=== PATIENT | male | born 1950 | race Caucasian/White ===

== ENCOUNTER → 2017-09-11 | Outpatient (CLI) | payer MEDICARE, BC | END | disposition home or self-care (01) | LOC: PCVCCLINIC 13:30 | DX: I25.10 Atherosclerotic heart disease of native coronary artery without angina pectoris (principal); I10 Essential (primary) hypertension; E78.5 Hyperlipidemia, unspecified; D68.51 Activated protein C resistance; E11.9 Type 2 diabetes mellitus without complications; Z98.890 Other specified postprocedural states; Z79.899 Other long term (current) drug therapy; Z79.01 Long term (current) use of anticoagulants | CPT/HCPCS: 93005; G0463 ==

== ENCOUNTER → 2018-03-18 | Outpatient (CLI) | payer MEDICARE, BC | END | disposition home or self-care (01) | LOC: PCVCCLINIC 14:42 | PROVIDERS: ATTEND Internal Medicine | DX: I25.10 Atherosclerotic heart disease of native coronary artery without angina pectoris (principal); E11.9 Type 2 diabetes mellitus without complications; E78.5 Hyperlipidemia, unspecified; D68.51 Activated protein C resistance; E78.00 Pure hypercholesterolemia, unspecified; I10 Essential (primary) hypertension; Z98.890 Other specified postprocedural states; Z79.82 Long term (current) use of aspirin; Z79.01 Long term (current) use of anticoagulants | CPT/HCPCS: 36415; 80061; 93005; G0463 ==

== ENCOUNTER → 2018-04-08 | Outpatient (CLI) | payer MEDICARE, BC ==
--- NOTE | 2018-04-08 15:59 | PCVCIMAG ---
APPROVED REPORT Study performed: 04/08/2018 13:53:06 EXAM: Comprehensive 2D, Doppler, and color-flow Echocardiogram Patient Location: Echo lab Room #: 2Status: routine BSA: 2.26 HR: 92 bpmBP: 152/96 mmHg Rhythm: NSR Other Information Study Quality: Good Indications Mitral Valve Disease CAD Hypertension/HDD S/P stent LAD, MV repair 2D Dimensions IVSd: 11.80 (7-11mm)LVOT Diam: 21.87 (18-24mm) LVDd: 46.75 mm PWd: 10.83 (7-11mm)Ascending Ao: 29.25 (22-36mm) LVDs: 29.18 (25-40mm) Left Atrium: 31.19 (27-40mm) Aortic Root: 25.46 mm LV Single Plane 4CH: 58.37 % LV Single Plane 2CH: 68.61 % Biplane EF: 64.7 % Volumes Left Atrial Volume (Systole) Single Plane 4CH: 64.16 mLSingle Plane 2CH: 47.64 mL Biplane LA Volume: 56.00 mLLA ESV Index: 25.00 mL/m2 Aortic Valve AoV Peak Los.: 1.47 m/s AO Peak Gr.: 8.96 mmHgLVOT Max P.91 mmHg LVOT Max V: 1.18 m/s JENNIFER Vmax: 3.01 cm2 Mitral Valve MV Peak Gr.: 9.66 mmHg MV Mean Gr.: 4.16 mmHgE/A Ratio: 1.0 MV Decel. Time: 129.00 ms MV E Max Los.: 1.46 m/s MV A Los.: 1.44 m/s MV Max Los.: 1.55 m/s MV Mean Los.: 0.95 m/s MV VTI: 386.02 mm IVRT: 58.82 ms TDI E/Lateral E': 11.23E/Medial E': 16.22 Medial E' Los.: 0.09 m/s Lateral E' Los.: 0.13 m/s Pulmonary Valve PV Peak Los.: 1.47 m/sPV Peak Gr.: 8.69 mmHg Pulmonary Vein P Vein S: 0.65 m/sP Vein A: 0.28 m/s P Vein D: 0.65 m/sP Vein A Dur.: 86.5 msec P Vein S/D Ratio: 1.00 Tricuspid Valve TR Peak Los.: 2.95 m/s TR Peak Gr.: 34.88 mmHg TV Vmax: 0.52 m/sPA Pressure: 42.00 mmHg Left Ventricle The left ventricle is normal size. There is normal LV segmental wall motion. Mild concentric left ventricular hypertrophy. The left ventricular systolic function is normal. The left ventricular ejection fraction is within the normal range. LVEF is 60-65%. This study is not technically sufficient to allow evaluation of the LV diastolic function. Right Ventricle The right ventricle is normal size. The right ventricular systolic function is normal. Atria The left atrium size is normal. The right atrium size is normal. Aortic Valve The aortic valve is normal in structure. No aortic regurgitation is present. There is no aortic valvular stenosis. Mitral Valve Mitral valve repair with a #35 Lizzie annuloplasty band and resection of a posterior flail leaflet. Normally functioning valve. There is no mitral valve regurgitation noted. No evidence of mitral valve stenosis. Tricuspid Valve The tricuspid valve is normal in structure. Mild to moderate tricuspid regurgitation with a PA pressure of 40 mmHg. Moderate pulmonary hypertension. Pulmonic Valve The pulmonary valve is normal in structure. There is no pulmonic valvular regurgitation. Great Vessels The aortic root is normal in size. The ascending aorta is normal in size. Aortic arch is normal in caliber. IVC is normal in size and collapses >50% with inspiration. Pericardium There is no pericardial effusion. There is no pleural effusion. <Conclusion> The left ventricular systolic function is normal. There is normal LV segmental wall motion. LVEF 60-65%. The aortic valve is normal in structure. No aortic regurgitation or stenosis Mitral valve repair with a #35 Lizzie annuloplasty band and resection of a posterior flail leaflet. Normally functioning valve. There is no mitral valve regurgitation. Mild to moderate tricuspid regurgitation with pulmonary artery pressure of 40 mmHg. There is no pericardial effusion.
--- NOTE | 2018-04-08 16:00 | PCVCIMAG ---
APPROVED REPORT Study performed: 04/08/2018 14:23:00 Exam: Stress Echocardiogram Indication: CAD s/p PCI, Mitral Valve Disease, Hypertension Patient Location: Echo lab Stress Nurse: Lisa Garvey RN Room #: 2 Status: routine Ht: 6 ft 1 in HR: 99 bpm BP: 152/96 mmHg Rhythm: NSR Medical History Medical History: CAD s/p stent,Mitral valve repair Medications: Metoprolol- held for 24 hours Cardiac Risk Factors: HTN Previous Cardiac Procedures: PCI Pretest Chest Pain Characteristics: No chest pain Exercise History: Physically active Procedure The patient underwent an Exercise Stress Test using the [place] Protocol. Blood pressure, heart rate, and EKG were monitored. An Echocardiogram was performed by emissions testing technician in four stages in quad fashion. At peak stress, four selected images were obtained and placed side by side with resting images for comparison. Stress Test Details Stress Test: Exercise stress testing was performed using a [place] protocol. HR Resting HR: 99 bpmMax Heart Rate (APMHR): 155 bpm Max HR Achieved: 151 bpmTarget HR (85% APMHR): 131 bpm % of APMHR: 97 Recovery HR: 106 bpm HR response to stress: Normal HR response to stress BP Resting BP: 152/96 mmHg Max BP: 216/80 mmHg Recovery BP: 168/84 mmHg BP response to stress: hypertensive response to stress. ECG Resting ECG: Sinus Rhythm Stress ECG: Sinus Rhythm ST Change: Non-ischemic Maximum ST Deviation: 0 mm Arrhythmia: Occasional PVCs and couplets Recovery ECG: Sinus Rhythm Recovery ST Change: Non-ischemic Recovery ST Deviation: 0 mm Recovery Arrhythmia: Rare PVCs Clinical Reason for Termination: Maximal effort Stress Symptoms: Fatigue Exercise duration: 9 min 00 sec Highest Stage Achieved: Stage 3: 3.4 mph at 14% grade. Exercise capacity: 10.1 METs Overall Exercise Capacity for Age: Average Scale: Active Angina Score: None No complications. Stress ECG Conclusion The patient exercised according to the [place] protocol for 9:00 mins; achieving a work level of 10.1 METS. The resting heart rate of 99 bpm naga to a maximum heart rate of151 bpm. This value represent 97% of the maximal, age-predicted heart rate. The resting blood pressure of 152/96 mmHg, naga to a maximum blood pressure of 216/80 mmHg. The exercise test was stopped due to fatigue. Lynne Treadmill Score is 9.0 which is Low risk. Pre-Stress Echo The resting Echocardiogram showed normal left ventricular contractility with an estimated Ejection Fraction of about 55-60%. Normal wall motion in all segments on baseline images. Post-Stress Echo The stress Echocardiogram showed normal left ventricular contractility with an estimated Ejection Fraction of about 65-70%. Normal augmentation of wall motion in all segments on post stress images. Clinical No clinical or ECG evidence for ischemia. Conclusion Clinical Response: Non-ischemic Exercise Capacity: Average Stress ECG Response: Non-ischemic Stress Echo Images: Non-ischemic No echocardiographic evidence for exercise induced ischemia. No clinical, EKG or echocardiographic evidence for ischemia. Normal stress echocardiogram with maximal exercise stress. <Conclusion> No echocardiographic evidence for exercise induced ischemia. No clinical, EKG or echocardiographic evidence for ischemia. Normal stress echocardiogram with maximal exercise stress.
== END | disposition home or self-care (01) ==
LOC: PCVCIMAG 13:00
PROVIDERS: ATTEND Internal Medicine
DX: I07.1 Rheumatic tricuspid insufficiency (principal); I25.10 Atherosclerotic heart disease of native coronary artery without angina pectoris; E78.5 Hyperlipidemia, unspecified; I10 Essential (primary) hypertension; E11.9 Type 2 diabetes mellitus without complications; I27.20 Pulmonary hypertension, unspecified; Z98.890 Other specified postprocedural states
CPT/HCPCS: 93306; 93351

== ENCOUNTER → 2019-04-07 | Outpatient (CLI) | payer MEDICARE, BC | END | disposition home or self-care (01) | LOC: PCVCCLINIC 15:49 | PROVIDERS: ATTEND Internal Medicine | DX: I25.10 Atherosclerotic heart disease of native coronary artery without angina pectoris (principal); E78.5 Hyperlipidemia, unspecified; D68.51 Activated protein C resistance; E11.9 Type 2 diabetes mellitus without complications; E78.00 Pure hypercholesterolemia, unspecified; Z98.890 Other specified postprocedural states; Z79.82 Long term (current) use of aspirin; Z79.899 Other long term (current) drug therapy | CPT/HCPCS: 93005; G0463 ==